=== PATIENT | female | born 1980 | race African-American/Black ===

== ENCOUNTER 2017-07-27 01:44 | Emergency (ER) | payer SELFPAY ==
[~2017-07-27] VITALS: Ht 175.3 cm; Wt 90.8 kg
[~2017-07-27 01:44] MED LIST: ALLERGY RELF10 M3 PO; AVIDOXY100 MG PO; BACTROBAN2 % EX; CEPHALEXIN500 MG PO; CIPRO500 MG OR; CYCLOBENZAPR10 MG PO; DICLOFENAC75 MG PO; DIFLUCAN150 MG PO; FENTANYL25 MCG/HR TD; FLEXERIL PO; HYDROCODONE/ACE1 TAB PO; HYDROXYZ HCL25 MG OR; LISINOPRIL20 M1 OR; LOPRESSOR25 MG PO; LORTAB 7.5-3251 TAB PO; MACROBID100 MG OR; MACRODANTIN100 MG OR; MEDDOSEPAK PO; METOPROL TAR25 MG PO; MOTRIN800 MG PO; NO MEDS; NORVASC10 M1 PO; NORVASC2.5 MG PO; ROBITUSSIN AC10 ML PO; TERAZOL 70.4 % VA; TORADOL OR; ZPAK PO; ZYRTEC10 M5 PO
[2017-07-27 02:07] LABS: URINE BLOOD DIPSTICK NEGATIVE (NEGATIVE); URINE CLARITY CLEAR; URINE COLOR YELLOW; URINE GLUCOSE - DIPSTICK NEGATIVE (NEGATIVE); URINE KETONE NEGATIVE (NEGATIVE); URINE LEUK ESTERASE NEGATIVE (NEGATIVE); URINE NITRITE - DIPSTICK NEGATIVE (Negative); URINE PROTEIN - DIPSTICK NEGATIVE (NEG-TRACE); URINE SPECIFIC GRAVITY >=1.030
[2017-07-27 02:08] LABS: HEMATOCRIT 32.5 % (37.0-47.0); HEMOGLOBIN 11.5 g/dl (12.0-16.0); IMMATURE GRANULOCYTES 0.2 % (0.0-1.0); MEAN CELL VOLUME 89.8 fL CALC (80.0-100.0); MEAN CORPUSCULAR HGB 31.8 pG CALC (26.0-32.0); MEAN CORPUSCULAR HGB CONC 35.4 g/L CALC (32.0-36.0); NEUT# 3.44 thou/uL (2.00-7.15); RED BLOOD COUNT 3.62 mill/uL (4.20-5.60); RED CELL DISTRI WIDTH 13.2 % (11.5-15.5)
[2017-07-27 02:10] LABS: URINE BILIRUBIN - DIPSTICK NEGATIVE (NEGATIVE)
[2017-07-27 02:22] LABS: ALBUMIN 4.4 g/dL (3.2-5.0); ALKALINE PHOSPHATASE 80 u/l (38-126); ANION GAP 17 (6-22 (CALC)); BILIRUBIN, TOTAL 0.6 mg/dL (0.0-1.4); BUN 9 mg/dL (7-17); BUN/CREATININE RATIO 16 (12-20 (CALC)); CALCIUM 9.6 mg/dL (8.4-10.2); CARBON DIOXIDE 22 mmol/l (22-30); CHLORIDE 105 mmol/l (95-108); CREATININE 0.6 mg/dL (0.5-1.0); GFR > 60 ML/MIN (>=60 (CALC)); GFR FOR AFR.AMER. > 60 ML/MIN (>=60 (CALC)); GLUCOSE 87 mg/dL (65-105); POTASSIUM 3.4 mmol/l (3.5-5.1); SGOT/AST 15 u/l (14-36); SGPT/ALT 23 u/l (9-52); SODIUM 141 mmol/l (137-146); TOTAL PROTEIN 7.4 g/dL (6.3-8.2)
[2017-07-27 03:05] LABS: BETA-HCG, QUANT(RESULT NUMBER) 68476 mIU/mL
[2017-07-27 07:18] VITALS: BP 125/66
== END 2017-07-27 07:24 | disposition home or self-care (01) | DRG 778 ==
LOC: ED 01:44
PROVIDERS: Emergency Medicine
DX: O20.0 Threatened abortion (principal); O16.1 Unspecified maternal hypertension, first trimester; Z3A.12 12 weeks gestation of pregnancy

== ENCOUNTER 2018-02-13 20:28 | Emergency (ER) | payer BC, OTHER ==
[~2018-02-13] VITALS: Ht 175.3 cm; Wt 94.1 kg
[2018-02-13 21:34] LABS: HEMATOCRIT 36.2 % (37.0-47.0); HEMOGLOBIN 11.6 g/dl (12.0-16.0); IMMATURE GRANULOCYTES 0.5 % (0.0-1.0); MEAN CELL VOLUME 89.4 fL CALC (80.0-100.0); MEAN CORPUSCULAR HGB 28.6 pG CALC (26.0-32.0); NEUT# 2.17 thou/uL (2.00-7.15); RED BLOOD COUNT 4.05 mill/uL (4.20-5.60); RED CELL DISTRI WIDTH 13.9 % (11.5-15.5)
[2018-02-13 21:46] LABS: ALBUMIN 4.1 g/dL (3.2-5.0); ALKALINE PHOSPHATASE 105 u/l (38-126); ANION GAP 16 (6-22 (CALC)); BILIRUBIN, TOTAL 0.5 mg/dL (0.0-1.4); BUN 10 mg/dL (7-17); BUN/CREATININE RATIO 17 (12-20 (CALC)); CARBON DIOXIDE 27 mmol/l (22-30); CHLORIDE 102 mmol/l (95-108); CREATININE 0.6 mg/dL (0.5-1.0); GFR > 60 ML/MIN (>=60 (CALC)); GFR FOR AFR.AMER. > 60 ML/MIN (>=60 (CALC)); POTASSIUM 3.4 mmol/l (3.5-5.1); SGOT/AST 40 u/l (14-36); SGPT/ALT 51 u/l (9-52); SODIUM 141 mmol/l (137-146); TOTAL PROTEIN 7.4 g/dL (6.3-8.2)
[2018-02-13 22:45] LABS: URINE BILIRUBIN - DIPSTICK NEGATIVE (NEGATIVE); URINE BLOOD DIPSTICK LARGE (NEGATIVE); URINE COLOR YELLOW; URINE GLUCOSE - DIPSTICK NEGATIVE (NEGATIVE); URINE KETONE NEGATIVE (NEGATIVE); URINE NITRITE - DIPSTICK NEGATIVE (Negative); URINE PROTEIN - DIPSTICK NEGATIVE (NEG-TRACE); URINE UROBILINOGEN - DIPSTICK 0.2 E.U./dL (0.2)
[2018-02-13 22:50] LABS: URINE CLARITY SL CLOUDY; URINE LEUK ESTERASE MODERATE (NEGATIVE)
[2018-02-13 23:01] LABS: URINE BACTERIA FEW hpf
[2018-02-13] MEDS ORDERED: LABETALOL200 MG PO (23:19)
[2018-02-13 23:27] VITALS: BP 155/92
== END 2018-02-13 23:29 | disposition home or self-care (01) | DRG 305 ==
LOC: ED 20:28
PROVIDERS: Family Medicine
DX: I10 Essential (primary) hypertension (principal); R51 Headache

== ENCOUNTER 2018-09-04 23:43 | Emergency (ER) | payer BC, OTHER ==
[~2018-09-04 23:43] MED LIST changes: +LABETALOL200 MG PO
== END 2018-09-04 23:53 | disposition left against medical advice (07) | DRG 951 ==
LOC: ED 23:43 → LWOBS 23:53
DX: Z91.19 Patient's noncompliance with other medical treatment and regimen (principal)

== ENCOUNTER 2018-12-16 00:18 | Emergency (ER) | payer BC, OTHER ==
[~2018-12-16] VITALS: Ht 175.3 cm; Wt 90.0 kg
[2018-12-16] MEDS ORDERED: LABETALOL100 MG PO (00:29)
[2018-12-16 01:04] LABS: HEMATOCRIT 36.2 % (37.0-47.0); HEMOGLOBIN 12.2 g/dl (12.0-16.0); IMMATURE GRANULOCYTES 0.2 % (0.0-5.0); MEAN CELL VOLUME 93.1 fL CALC (80.0-100.0); MEAN CORPUSCULAR HGB 31.4 pG CALC (26.0-32.0); MEAN CORPUSCULAR HGB CONC 33.7 g/L CALC (32.0-36.0); NEUT# 2.15 thou/uL (2.00-7.15); RED BLOOD COUNT 3.89 mill/uL (4.20-5.60); RED CELL DISTRI WIDTH 13.2 % (11.5-15.5)
[2018-12-16 01:06] LABS: URINE BILIRUBIN - DIPSTICK NEGATIVE (NEGATIVE); URINE BLOOD DIPSTICK NEGATIVE (NEGATIVE); URINE COLOR YELLOW; URINE GLUCOSE - DIPSTICK NEGATIVE (NEGATIVE); URINE KETONE NEGATIVE (NEGATIVE); URINE LEUK ESTERASE NEGATIVE (NEGATIVE); URINE NITRITE - DIPSTICK NEGATIVE (Negative); URINE PH 7.5 (4.5-8.0); URINE PROTEIN - DIPSTICK NEGATIVE (NEG-TRACE); URINE SPECIFIC GRAVITY 1.015
[2018-12-16 01:10] LABS: BARBITURATES NEGATIVE (NEGATIVE); COCAINE NEGATIVE (NEGATIVE); METHADONE NEGATIVE (NEGATIVE); OXCYCODONE NEGATIVE (NEGATIVE); TETRAHYDROCANNABIONOL NEGATIVE (NEGATIVE); TRICYLIC ANTIDEPRESSANTS NEGATIVE (NEGATIVE)
[2018-12-16 01:15] LABS: ALBUMIN 4.7 g/dL (3.2-5.0); ALKALINE PHOSPHATASE 105 u/l (38-126); ANION GAP 15 (6-22 (CALC)); BILIRUBIN, TOTAL 0.4 mg/dL (0.0-1.4); BUN 14 mg/dL (7-17); BUN/CREATININE RATIO 20 (12-20 (CALC)); CARBON DIOXIDE 27 mmol/l (22-30); CHLORIDE 103 mmol/l (95-108); CREATININE 0.7 mg/dL (0.5-1.0); GFR > 60 ML/MIN (>=60 (CALC)); GFR FOR AFR.AMER. > 60 ML/MIN (>=60 (CALC)); POTASSIUM 3.2 mmol/l (3.5-5.1); SGOT/AST 25 u/l (14-36); SODIUM 141 mmol/l (137-146); TOTAL PROTEIN 7.5 g/dL (6.3-8.2)
[2018-12-16 01:23] LABS: URINE BACTERIA MODERATE hpf; URINE RBC 0-2 RBC/hpf (0-5); URINE SQUAMOUS EPITHELIAL CELL RARE EPI/hpf (0-FEW); URINE WBC 0-2 WBC/hpf (0-5)
[2018-12-16] MEDS ORDERED: CLONIDINE0.1 MG PO (02:34)
[2018-12-16 03:16] VITALS: BP 140/86
== END 2018-12-16 03:17 | disposition home or self-care (01) | DRG 305 ==
LOC: ED 00:18
PROVIDERS: Emergency Medicine
DX: I10 Essential (primary) hypertension (principal)

== ENCOUNTER 2019-04-16 01:58 | Emergency (ER) | payer OTHER ==
[~2019-04-16] VITALS: Ht 175.3 cm; Wt 100.0 kg
[~2019-04-16 01:58] MED LIST changes: +CLONIDINE0.1 MG PO; +LABETALOL100 MG PO
[2019-04-16] MEDS ORDERED: CLONIDINE0.1 MG PO (02:05)
[2019-04-16 03:05] VITALS: BP 140/86
== END 2019-04-16 03:07 | disposition home or self-care (01) ==
LOC: ED 01:58
DX: I10 Essential (primary) hypertension (principal); T44.8X6A Underdosing of centrally-acting and adrenergic-neuron-blocking agents, initial encounter; Z91.128 Patient's intentional underdosing of medication regimen for other reason

== ENCOUNTER 2019-05-22 14:50 | Emergency (ER) | payer OTHER ==
[~2019-05-22] VITALS: Ht 175.3 cm; Wt 89.9 kg
[2019-05-22] MEDS ORDERED: CATAPRES0.1 MG PO (16:50)
[2019-05-22] MEDS ORDERED: LABETALOL HYDR100 MG PO (16:50)
[2019-05-22 17:05] VITALS: BP 169/113
== END 2019-05-22 17:05 | disposition home or self-care (01) ==
LOC: ED 14:50
DX: I10 Essential (primary) hypertension (principal); Z76.0 Encounter for issue of repeat prescription

== ENCOUNTER 2019-07-12 00:31 | Emergency (ER) | payer OTHER ==
[~2019-07-12] VITALS: Ht 175.3 cm; Wt 92.7 kg
[~2019-07-12 00:31] MED LIST changes: +CATAPRES0.1 MG PO; +LABETALOL HYDR100 MG PO
[2019-07-12] MEDS ORDERED: LISINOPRIL30 MG PO (01:10)
[2019-07-12 01:13] LABS: HEMOGLOBIN 11.8 g/dl (12.0-16.0); IMMATURE GRANULOCYTES 0.2 % (0.0-5.0); MEAN CELL VOLUME 91.9 fL CALC (80.0-100.0); MEAN CORPUSCULAR HGB 31.9 pG CALC (26.0-32.0); MEAN CORPUSCULAR HGB CONC 34.7 g/L CALC (32.0-36.0); NEUT# 2.81 thou/uL (2.00-7.15); RED BLOOD COUNT 3.7 mill/uL (4.20-5.60); RED CELL DISTRI WIDTH 13.5 % (11.5-15.5)
[2019-07-12 01:59] LABS: ALBUMIN 4.4 g/dL (3.2-5.0); ALKALINE PHOSPHATASE 117 u/l (38-126); ANION GAP 11 (6-22 (CALC)); BILIRUBIN, TOTAL 0.4 mg/dL (0.0-1.4); BUN 15 mg/dL (7-17); BUN/CREATININE RATIO 18 (12-20 (CALC)); CARBON DIOXIDE 30 mmol/l (22-30); CHLORIDE 101 mmol/l (95-108); CREATININE 0.8 mg/dL (0.5-1.0); GFR > 60 ML/MIN (>=60 (CALC)); GFR FOR AFR.AMER. > 60 ML/MIN (>=60 (CALC)); POTASSIUM 3.2 mmol/l (3.5-5.1); SGOT/AST 24 u/l (14-36); SODIUM 139 mmol/l (137-146); TOTAL PROTEIN 7.7 g/dL (6.3-8.2)
[2019-07-12 02:14] LABS: MYOGLOBIN 30 ng/mL (0 - 62)
[2019-07-12 02:54] LABS: BARBITURATES NEGATIVE (NEGATIVE); COCAINE NEGATIVE (NEGATIVE); METHADONE NEGATIVE (NEGATIVE); OXCYCODONE NEGATIVE (NEGATIVE); TETRAHYDROCANNABIONOL NEGATIVE (NEGATIVE); TRICYLIC ANTIDEPRESSANTS NEGATIVE (NEGATIVE)
[2019-07-12 02:59] LABS: URINE BILIRUBIN - DIPSTICK NEGATIVE (NEGATIVE); URINE BLOOD DIPSTICK TRACE-INTACT (NEGATIVE); URINE COLOR YELLOW; URINE GLUCOSE - DIPSTICK NEGATIVE (NEGATIVE); URINE KETONE NEGATIVE (NEGATIVE); URINE LEUK ESTERASE NEGATIVE (NEGATIVE); URINE NITRITE - DIPSTICK NEGATIVE (Negative); URINE PROTEIN - DIPSTICK NEGATIVE (NEG-TRACE); URINE SPECIFIC GRAVITY 1.015; URINE UROBILINOGEN - DIPSTICK 0.2 E.U./dL (0.2)
[2019-07-12 03:39] VITALS: BP 152/79
== END 2019-07-12 03:48 | disposition home or self-care (01) ==
LOC: ED 00:31
PROVIDERS: Emergency Medicine
DX: R07.89 Other chest pain (principal); I10 Essential (primary) hypertension

== ENCOUNTER 2019-09-07 01:00 | Emergency (ER) | payer BC ==
[~2019-09-07] VITALS: Ht 175.3 cm; Wt 80.0 kg
[~2019-09-07 01:00] MED LIST changes: +LISINOPRIL30 MG PO
[2019-09-07] MEDS ORDERED: AMOXICILLIN500 MG PO (02:39)
[2019-09-07] MEDS ORDERED: CLARITIN10 M1 PO (02:39)
[2019-09-07 04:00] VITALS: BP 160/72
== END 2019-09-07 04:00 | disposition home or self-care (01) | DRG 153 ==
LOC: ED 01:00
DX: J02.9 Acute pharyngitis, unspecified (principal)

== ENCOUNTER 2019-09-17 | Emergency (ER) | payer BC ==
[~2019-09-17] MED LIST changes: +AMOXICILLIN500 MG PO; +CLARITIN10 M1 PO
== END 2019-09-17 06:15 | disposition home or self-care (01) | DRG 153 ==
DX: J06.9 Acute upper respiratory infection, unspecified (principal); I10 Essential (primary) hypertension

== ENCOUNTER 2019-09-26 | Emergency (ER) | payer BC ==
[2019-09-27] MEDS ORDERED: CLONIDINE0.1 MG PO (00:19)
== END 2019-09-27 00:40 | disposition home or self-care (01) | DRG 305 ==
DX: I10 Essential (primary) hypertension (principal)

== ENCOUNTER 2020-09-17 13:25 | Emergency (ER) | payer BC ==
[~2020-09-17] VITALS: Ht 175.3 cm; Wt 92.3 kg
[2020-09-17 14:21] LABS: URINE BILIRUBIN - DIPSTICK NEGATIVE (NEGATIVE); URINE BLOOD DIPSTICK SMALL (NEGATIVE); URINE CLARITY CLEAR; URINE COLOR YELLOW; URINE GLUCOSE - DIPSTICK NEGATIVE (NEGATIVE); URINE KETONE 15 mg/dL (NEGATIVE); URINE LEUK ESTERASE TRACE (Negative); URINE NITRITE - DIPSTICK NEGATIVE (Negative); URINE PROTEIN - DIPSTICK NEGATIVE (NEG-TRACE); URINE UROBILINOGEN - DIPSTICK 0.2 E.U./dL (0.2)
[2020-09-17 14:23] LABS: HCG SERUM/URINE (NEG/POS) NEGATIVE (NEGATIVE)
[2020-09-17] MEDS ORDERED: MAXZIDE-2537.5 MG/TA PO (14:24)
[2020-09-17 14:43] LABS: URINE BACTERIA FEW hpf; URINE SQUAMOUS EPITHELIAL CELL MANY EPI/hpf (0-FEW)
[2020-09-17] MEDS ORDERED: KEFLEX500 M1 PO (15:54)
[2020-09-17] MEDS ORDERED: TESSALON PERLE100 MG PO (15:54)
[2020-09-17 16:04] VITALS: BP 128/69
== END 2020-09-17 16:04 | disposition home or self-care (01) | DRG 153 ==
LOC: ED 13:25
DX: J06.9 Acute upper respiratory infection, unspecified (principal); N39.0 Urinary tract infection, site not specified; I10 Essential (primary) hypertension; Z20.828 Contact with and (suspected) exposure to other viral communicable diseases

== ENCOUNTER 2022-03-13 12:02 | Emergency (ER) | payer SELFPAY ==
[~2022-03-13] VITALS: Ht 175.3 cm; Wt 105.2 kg
[~2022-03-13 12:02] MED LIST changes: +KEFLEX500 M1 PO; +MAXZIDE-2537.5 MG/TA PO; +TESSALON PERLE100 MG PO
[2022-03-13 12:32] VITALS: BP 132/91
[2022-03-13 12:55] VITALS: BP 130/85
[2022-03-13 13:00] VITALS: BP 121/86
[2022-03-13 13:19] VITALS: BP 120/82
[2022-03-13] MEDS ORDERED: FLEXERIL5 M1 PO (15:21)
[2022-03-13] MEDS ORDERED: VOLTAREN1%GEL TOP (15:21)
[2022-03-13 15:25] VITALS: BP 120/82
== END 2022-03-13 15:37 | disposition home or self-care (01) | DRG 552 ==
LOC: ED 12:02
DX: M54.2 Cervicalgia (principal); I10 Essential (primary) hypertension; E78.00 Pure hypercholesterolemia, unspecified

== ENCOUNTER 2022-11-28 09:24 | Emergency (ER) | payer BC ==
[~2022-11-28] VITALS: Ht 175.3 cm; Wt 82.0 kg
[~2022-11-28 09:24] MED LIST changes: +FLEXERIL5 M1 PO; +VOLTAREN1%GEL TOP
[2022-11-28 09:39] VITALS: BP 140/84
[2022-11-28 09:45] VITALS: BP 122/81
[2022-11-28 10:00] VITALS: BP 117/77
[2022-11-28 10:15] VITALS: BP 121/78
[2022-11-28 10:30] VITALS: BP 117/77
[2022-11-28 10:46] VITALS: BP 76/60
[2022-11-28] MEDS ORDERED: PAXLOVID PO (13:00)
== END 2022-11-28 13:35 | disposition home or self-care (01) | DRG 179 ==
LOC: ED 09:24
DX: U07.1 COVID-19 (principal); I10 Essential (primary) hypertension

== ENCOUNTER 2023-01-01 18:11 | Emergency (ER) | payer BC ==
[~2023-01-01] VITALS: Ht 175.3 cm; Wt 106.5 kg
[2023-01-01] VITALS (10 sets, daily range): BP systolic 134–171; BP diastolic 80–146
[~2023-01-01 18:11] MED LIST changes: +PAXLOVID PO
[2023-01-01 18:38] LABS: BASO% 0.6 % (0-3); EOS% 1.5 % (0-8); HEMATOCRIT 34.6 % (37.0-47.0); HEMOGLOBIN 11.8 g/dl (12.0-16.0); IMMATURE GRANULOCYTES 0.1 % (0.0-5.0); LYMPH% 25.9 % (15-41); MEAN CELL VOLUME 93.3 fL CALC (80.0-100.0); MEAN CORPUSCULAR HGB 31.8 pG CALC (26.0-32.0); MEAN CORPUSCULAR HGB CONC 34.1 g/dL CAL (32.0-36.0); MONO% 8.6 % (2-13); NEUT# 4.36 thou/uL (2.00-7.15); NEUT% 63.3 % (42-76); RED BLOOD COUNT 3.71 mill/uL (4.20-5.60); RED CELL DISTRI WIDTH 14.6 % (11.5-15.5)
[2023-01-01 18:56] LABS: ALBUMIN 4.4 g/dL (3.2-5.0); ALKALINE PHOSPHATASE 74 u/l (38-126); ANION GAP 12 (6-22 (CALC)); BILIRUBIN, TOTAL 0.4 mg/dL (0.02-1.3); BUN 9 mg/dL (7-17); BUN/CREATININE RATIO 12 (12-20 (CALC)); CARBON DIOXIDE 27 mmol/l (22-30); CHLORIDE 105 mmol/l (95-108); CREATININE 0.7 mg/dL (0.5-1.0); GFR FOR AFR.AMER. > 60 ML/MIN (>=60 (CALC)); GFR OTHER RACES > 60 ML/MIN (>=60 (CALC)); LIPASE 91 u/l (23-300); POTASSIUM 3.4 mmol/l (3.5-5.1); SGOT/AST 35 u/l (14-36); SODIUM 139 mmol/l (137-146); TOTAL PROTEIN 7.6 g/dL (6.3-8.2)
[2023-01-01 20:35] LABS: URINE BILIRUBIN - DIPSTICK NEGATIVE (NEGATIVE); URINE BLOOD DIPSTICK MODERATE (NEGATIVE); URINE COLOR YELLOW; URINE GLUCOSE - DIPSTICK NEGATIVE (NEGATIVE); URINE KETONE NEGATIVE (NEGATIVE); URINE LEUK ESTERASE NEGATIVE (NEGATIVE); URINE PH 7.5 (4.5-8.0); URINE PROTEIN - DIPSTICK NEGATIVE (NEG-TRACE); URINE UROBILINOGEN - DIPSTICK 0.2 E.U./dL (0.2)
[2023-01-01 20:37] LABS: URINE NITRITE - DIPSTICK NEGATIVE (Negative)
[2023-01-01 20:44] LABS: URINE SQUAMOUS EPITHELIAL CELL FEW EPI/hpf (0-FEW); URINE WBC 0-2 WBC/hpf (0-5)
== END 2023-01-01 22:24 | disposition home or self-care (01) | DRG 779 ==
LOC: ED 18:11
PROVIDERS: Family Medicine
DX: O03.4 Incomplete spontaneous abortion without complication (principal); I10 Essential (primary) hypertension; E78.00 Pure hypercholesterolemia, unspecified

== ENCOUNTER 2023-02-24 07:40 | Emergency (ER) | payer SELFPAY ==
[2023-02-24] VITALS (9 sets, daily range): BP systolic 140–175; BP diastolic 82–119
[~2023-02-24] VITALS: Ht 175.3 cm; Wt 101.0 kg
[2023-02-24] MEDS ORDERED: AMLODIPINE BESYL5 MG PO (08:37)
[2023-02-24] MEDS ORDERED: LOSARTAN POTASS50 MG PO (08:38)
[2023-02-24] MEDS ORDERED: BUPROPN HCL150 MG PO (08:39)
[2023-02-24] MEDS ORDERED: AMOX/K CLAV875 M1 PO (09:10)
== END 2023-02-24 09:33 | disposition home or self-care (01) | DRG 153 ==
LOC: ED 07:40
DX: J02.9 Acute pharyngitis, unspecified (principal); I10 Essential (primary) hypertension; E78.00 Pure hypercholesterolemia, unspecified; Z20.822 Contact with and (suspected) exposure to COVID-19

== ENCOUNTER 2023-11-08 15:32 | Observation (INO) | payer OTHER ==
[~2023-11-08] VITALS: Ht 175.3 cm; Wt 104.0 kg
[2023-11-08] VITALS (20 sets, daily range): BP systolic 129–190; BP diastolic 90–123
[~2023-11-08 15:32] MED LIST changes: +AMLODIPINE BESYL5 MG PO; +AMOX/K CLAV875 M1 PO; +BUPROPN HCL150 MG PO; +KLOR-CON M1515 MEQ PO; +LOSARTAN POTASS50 MG PO
--- NOTE | 2023-11-08 15:35 | NUR ---
PT TO ROOM WITH STEADY GAIT
[2023-11-08] MEDS ORDERED: ASPIRIN 81 MG/TAB PO ONE (15:40)
[2023-11-08] MEDS ORDERED: LABETALOL HCL 100 MG/20 ML VIAL IV ONE (15:55)
[2023-11-08 16:22] LABS: BASO% 0.8 % (0-3); EOS% 1.4 % (0-8); HEMATOCRIT 36.2 % (37.0-47.0); HEMOGLOBIN 12.4 g/dl (12.0-16.0); IMMATURE GRANULOCYTES 0.2 % (0.0-5.0); LYMPH% 29.8 % (15-41); MEAN CELL VOLUME 92.3 fL CALC (80.0-100.0); MEAN CORPUSCULAR HGB 31.6 pG CALC (26.0-32.0); MEAN CORPUSCULAR HGB CONC 34.3 g/dL CAL (32.0-36.0); MONO% 7.3 % (2-13); NEUT# 3.09 thou/uL (2.00-7.15); NEUT% 60.5 % (42-76); RED BLOOD COUNT 3.92 mill/uL (4.20-5.60); RED CELL DISTRI WIDTH 14.4 % (11.5-15.5)
--- NOTE | 2023-11-08 16:24 | NUR ---
pt medicated with aspirin and labetalol, pt alert and oriented.
[2023-11-08 16:50] LABS: ALBUMIN 4.7 g/dL (3.2-5.0); ALKALINE PHOSPHATASE 88 u/l (38-126); ANION GAP 10 (6-22 (CALC)); BILIRUBIN, TOTAL 0.5 mg/dL (0.02-1.3); BUN 12 mg/dL (7-17); BUN/CREATININE RATIO 11 (12-20 (CALC)); CHLORIDE 105 mmol/l (95-108); CREATININE 1.1 mg/dL (0.5-1.0); GFR FOR AFR.AMER. > 60 ML/MIN (>=60 (CALC)); GFR OTHER RACES 55 ML/MIN (>=60 (CALC)); POTASSIUM 2.9 mmol/l (3.5-5.1); SGOT/AST 31 u/l (14-36); SODIUM 144 mmol/l (137-146); TOTAL PROTEIN 7.9 g/dL (6.3-8.2)
[2023-11-08 16:53] LABS: CARBON DIOXIDE 32 mmol/l (22-30)
[2023-11-08] MEDS ORDERED: POTASSIUM CHLORIDE 20 MEQ/TAB PO ONE (18:30)
--- NOTE | 2023-11-08 18:56 | NUR ---
MD AT BEDSIDE TO DISCUSS POC TO ADMIT
[2023-11-08] MEDS ORDERED: MAGNESIUM HYDROXIDE 30 ML UDC PO PRN (19:05)
[2023-11-08] MEDS ORDERED: NITROGLYCERIN 0.4 MG/TAB SL PRN (19:05)
[2023-11-08] MEDS ORDERED: ACETAMINOPHEN 325 MG/TAB PO PRN (19:05)
[2023-11-08] MEDS ORDERED: SODIUM CHLORIDE 0.9% 1,000 ML IV PRN (19:05)
[2023-11-08] MEDS ORDERED: MORPHINE SULFATE 4 MG/ML VIAL IV PRN (19:05)
[2023-11-08] MEDS ORDERED: LOSARTAN Potassium 50 MG/TAB PO SCH (19:12)
--- NOTE | 2023-11-08 19:30 | NUR ---
PATIENT RESTING IN BED, NO APPARENT DISTRESS NOTED.
--- NOTE | 2023-11-08 20:50 | NUR ---
PATIENT AWAITING BED UPSTAIRS, PATIENT STATES SHE IS THINKING ABOUT LEAVING AMA. STATES IT IS BECAUSE OF HER CHILDREN. PATIENT NOTIFIED OF PLAN OF CARE FOR HER OBSERVATION STAY, INCLUDING TROPONIN AND LAB WORK. PATIENT WIHES TO SEE HER CHILDREN [facility] AND SHE WILL STAY, INFORMED PATIENT THAT WE WOULD TRY TO WORK IT OUT SO SHE CAN HAVE HER KIDS VISIT [facility]. PATIENT AGREABLE TO ADMISSION.
[2023-11-08] MEDS ORDERED: ENOXAPARIN SODIUM 40 MG/0.4 ML SYR SC SCH (21:00)
[2023-11-08] MEDS ORDERED: METOPROLOL TARTRATE 25 MG/TAB PO SCH (21:00)
[2023-11-08] MEDS ORDERED: ATORVASTATIN CALCIUM 40 MG/TAB PO SCH (21:00)
--- NOTE | 2023-11-08 21:45 | NUR ---
REPORT CALLED TO Obdulia HERNANDEZ RN.
--- NOTE | 2023-11-08 22:55 | NUR ---
PATIENT TO ROOM 273 VIA WHEELCHAIR. CARE HANDED OVER TO Obdulia HERNANDEZ.
--- NOTE | 2023-11-08 23:54 | NUR ---
RECEIVED REPORT FROM NURSE ECHEVERRIA, PATIENT TRANSPORTED BY WHEECHAIR, ARRIVED TO MS UNIT AT 2238, PATINET ALERT ORIENTED, ABLE TO MAKE NEEDS KNOWN, PATIENT IV ON LAC G 20 STARTED NS @ 100CC/HR, PATIENT ON TELEMETRY,ADMISSION ASSESSMENT COMPLETED, PATIENT INVENTORY DONE, CALL LIGHT IN REACHED.
--- NOTE | 2023-11-09 04:00 | NUR ---
KYARA GARGIES MONE, PATIENT NOT IN DISTRESS, BREATHING EVEN UNALBORED, NO CHEST DISCOMFORTS NOTED.
[2023-11-09 04:12] VITALS: BP 144/92
[2023-11-09 05:01] LABS: BASO% 0.6 % (0-3); EOS% 1.6 % (0-8); HEMATOCRIT 35.4 % (37.0-47.0); HEMOGLOBIN 12.2 g/dl (12.0-16.0); LYMPH% 31.1 % (15-41); MEAN CELL VOLUME 94.4 fL CALC (80.0-100.0); MEAN CORPUSCULAR HGB 32.5 pG CALC (26.0-32.0); MEAN CORPUSCULAR HGB CONC 34.5 g/dL CAL (32.0-36.0); MONO% 8.8 % (2-13); NEUT# 2.91 thou/uL (2.00-7.15); NEUT% 57.9 % (42-76); RED BLOOD COUNT 3.75 mill/uL (4.20-5.60); RED CELL DISTRI WIDTH 14.4 % (11.5-15.5)
[2023-11-09 05:08] LABS: ALBUMIN 3.9 g/dL (3.2-5.0); ALKALINE PHOSPHATASE 96 u/l (38-126); ANION GAP 7 (6-22 (CALC)); BILIRUBIN, TOTAL 0.5 mg/dL (0.02-1.3); BUN 15 mg/dL (7-17); BUN/CREATININE RATIO 17 (12-20 (CALC)); CALCULATED LDLCHOLESTEROL 81 mg/dL (62-129 (CALC)); CARBON DIOXIDE 30 mmol/l (22-30); CHLORIDE 106 mmol/l (95-108); CHOLESTEROL HDL RATIO 2.2 (<4.4 (CALC)); CREATININE 0.9 mg/dL (0.5-1.0); GFR FOR AFR.AMER. > 60 ML/MIN (>=60 (CALC)); GFR OTHER RACES > 60 ML/MIN (>=60 (CALC)); HDL CHOLESTEROL 86 mg/dL (39.0-59.0); MAGNESIUM 2.1 mg/dL (1.6-2.3); POTASSIUM 3.1 mmol/l (3.5-5.1); SGOT/AST 23 u/l (14-36); SODIUM 140 mmol/l (137-146); TOTAL CHOLESTEROL 186 mg/dl (0-199); TOTAL PROTEIN 6.6 g/dL (6.3-8.2); TOTAL TRIGLYCERIDES 93 mg/dl (0-149); VLDL CHOLESTROL 19 mg/dl (1-41 (CALC))
[2023-11-09 06:29] VITALS: BP 149/91
[2023-11-09 06:50] VITALS: BP 149/91
--- NOTE | 2023-11-09 07:10 | NUR ---
REPORT RECEIVED FROM LEONIE COSBY
--- NOTE | 2023-11-09 08:43 | NUR ---
AT BEDSIDE DISCUSSING POC WITH PT.
[2023-11-09] MEDS ORDERED: buPROPion HCL 150 MG TAB SR PO SCH (09:00)
[2023-11-09] MEDS ORDERED: POTASSIUM CHLORIDE 20 MEQ/PKT POWDER PO SCH (09:00)
[2023-11-09] MEDS ORDERED: CLOPIDOGREL BISULFATE 75 MG/TAB TAB PO SCH (09:00)
[2023-11-09] MEDS ORDERED: amLODIPine BESYLATE 5 MG/TAB PO SCH (09:00)
[2023-11-09] MEDS ORDERED: ASPIRIN 81 MG/TAB PO SCH (09:00)
--- NOTE | 2023-11-09 09:20 | NUR ---
BOOKED A CARDIOLOGY CONSULT WITH DR LARSON VIA THE [facility] AT 0920 HRS.
--- NOTE | 2023-11-09 09:23 | NUR ---
CARDIOLOGY CONSULT COMPLETED AT THIS TIME
[2023-11-09] MEDS ORDERED: PANTOPRAZOLE SODIUM Sesquihydr 40 MG/TAB PO SCH (09:30)
[2023-11-09 09:40] VITALS: BP 149/91
--- NOTE | 2023-11-09 09:40 | NUR ---
PT RESTING IN SEMI FOWLERS POSITION,A&O X3;PT DENIES ANY CURRENT PAIN OR DISCOMFORTS,PAIN SCALE AND REPORTING EDUCATED;ASSESSMENT COMPLETED;RESPIRATIONS EVEN AND UNLABORED ON RA,CLEAR LUNG SOUNDS;ABDOMEN SOFT ON PALPATION AND ACTIVE IN ALL 4 QUADRANTS;STRONG PEDAL PULSES;SKIN INTACT;TELE MONITORING IN PLACE;#20G TO LAC INFUSING NS @ 100ML/HR,SITE APPEARS HEALTHY;PT DENIES ANY ADDITIONAL NEEDS AND IS ENCOURAGED TO CALL FOR ASSISTANCE IF NEEDED;FALL PRECAUTIONS IN PLACE WITH BED IN THE LOWEST POSITION AND CALL LIGHT IN REACH;FREQUENT ROUNDS MADE.
--- NOTE | 2023-11-09 10:31 | NUR ---
AT BEDSIDE DISCUSSING POC WITH PT INCLUDING PLANS TO D/C HOME.
[2023-11-09] MEDS ORDERED: AMLODIPINE BESY10 MG PO (10:36)
--- NOTE | 2023-11-09 11:00 | NUR ---
ALL DISCHARGE INSTRUCTIONS PROVIDED AT THIS TIME;PT INSTRUCTED TO F/U WITH PCP AND CARDIOLOGY FOR A STRESS TEST OUT. [facility]FFER[facility] FOR CARDIOLOGY PROVIDED AND 'S NUMBER ALSO PROVIDED;PT INSTRUCTED TO INCREASE NORVASC RX TO 10MG PO DAILY AND RX SENT TO PHARMACY FOR KENO [facility]ER. PT DENIES ANY ADDITIONAL QUESTIONS OR NEEDS;IV SITE REMOVED WITH CATHETER INTACT AND TELE MONITORING D/C;WC TO BE PROVIDED FOR D/C HOME;PT TO TRANSPORT SELF HOME.FREQUENT ROUNDS MADE.
--- NOTE | 2023-11-09 11:20 | NUR ---
Discharge instructions given. Patient verbalizes understanding of same. Discharged in stable condition via Wheelchair to Home with *Other. All belongings sent with pt. PT TRAMSPORTED TO LOBBY IN STABLE CONDITION VIA WC ACCOMPANIED BY ENID ZAVALA. ALL PERSONAL BELONGINGS LEFT WITH PT.PT TO TRANSPORT SELF HOME
== END 2023-11-09 11:19 | disposition home or self-care (01) ==
LOC: ED 15:32 → ED-I 18:10 → ED 19:06 → MS2 19:07
PROVIDERS: Family Medicine; ADMIT Student in an Organized Health Care Education/Training Program; ATTEND Student in an Organized Health Care Education/Training Program
DX: R07.9 Chest pain, unspecified (principal); I10 Essential (primary) hypertension; E66.9 Obesity, unspecified; E78.00 Pure hypercholesterolemia, unspecified; F17.200 Nicotine dependence, unspecified, uncomplicated; Z68.33 Body mass index [BMI] 33.0-33.9, adult; E87.6 Hypokalemia
CPT/HCPCS: G0378; J1650